=== PATIENT | female | born 1980 | race Caucasian/White ===

== ENCOUNTER 2021-02-28 19:47 | Emergency (ER) | payer OTHER, BC ==
[2021-02-28] MEDS ORDERED: CYCLOBENZAPRINE10 MG PO (22:09)
== END 2021-02-28 22:26 | disposition home or self-care (01) ==
LOC: ER1 19:47
DX: S46.912A Strain of unspecified muscle, fascia and tendon at shoulder and upper arm level, left arm, initial encounter (principal); V49.40XA Driver injured in collision with unspecified motor vehicles in traffic accident, initial encounter; Y92.410 Unspecified street and highway as the place of occurrence of the external cause
CPT/HCPCS: 96372; 99283; J1885